=== PATIENT | male | born 1955 | race Two or more races ===

== ENCOUNTER 2022-05-01 05:14 | Emergency (ER) | payer OTHER ==
[~2022-05-01] VITALS: Ht 172.7 cm; Wt 64.9 kg
[2022-05-01] MEDS ORDERED: FLONASE16 GM NS (05:36)
== END 2022-05-01 10:17 | disposition home or self-care (01) ==
LOC: ER 05:14
DX: B34.8 Other viral infections of unspecified site (principal)

== ENCOUNTER 2025-02-01 10:21 | Emergency (ER) | payer OTHER ==
[~2025-02-01] VITALS: Ht 172.7 cm; Wt 69.9 kg
[~2025-02-01 10:21] MED LIST: FLONASE16 GM NS
[2025-02-01] MEDS ORDERED: ONDANSETRON HCL 2 MG/ML VIAL IV ONE (12:00)
[2025-02-01] MEDS ORDERED: FAMOTIDINE/PF 20 MG/2 ML VIAL IV PUSH ONE (12:00)
[2025-02-01] MEDS ORDERED: FAMOTIDINE/PF 20 MG/2 ML VIAL ONE (12:04)
[2025-02-01] MEDS ORDERED: ONDANSETRON HCL 2 MG/ML VIAL ONE (12:04)
[2025-02-01 12:20] LABS: BASO % 0.3 % (0.1-1.2); EOS # 0.09 (0.04-0.54); EOS % 1.0 % (0.7-7.0); LYMPH # 0.77 (1.18-3.74); LYMPH % 8.5 % (19.3-53.1); MEAN PLATELET VOLUME 9.20 fl (9.4-12.4); MONO # 0.64 (0.24-0.82); MONO % 7.1 % (4.7-12.5); NEUT # 7.43 (1.56-6.13); NEUT % 81.9 % (34.0-71.1); RED CELL DISTRIBUTION WIDTH 12.6 % (11.6-14.4)
[2025-02-01 13:21] LABS: COVID-19 AG NEGATIVE (NEGATIVE)
== END 2025-02-01 14:16 | disposition home or self-care (01) ==
LOC: ER 10:58
PROVIDERS: General Practice
DX: B34.9 Viral infection, unspecified (principal); R05.8 Other specified cough; J00 Acute nasopharyngitis [common cold]; Z20.822 Contact with and (suspected) exposure to COVID-19
CPT/HCPCS: 36415; 96365; 99282; J2405; J3490

== ENCOUNTER 2025-03-17 08:39 | Emergency (ER) | payer OTHER ==
[~2025-03-17] VITALS: Ht 172.7 cm; Wt 71.2 kg
[2025-03-17 08:55] VITALS: BP 153/88; O2SAT 95
[2025-03-17] MEDS ORDERED: DEXAMETHASONE SODIUM PHOSPHATE 4 MG/ML VIAL IM STA (09:18)
[2025-03-17] MEDS ORDERED: KETOROLAC TROMETHAMINE 30 MG VIAL IM STA (09:19)
[2025-03-17] MEDS ORDERED: ORPHENADRINE CITRATE 30 MG/ML AMPUL IM STA (09:19)
[2025-03-17] MEDS ORDERED: DEXAMETHASONE SODIUM PHOSPHATE 4 MG/ML VIAL ONE (09:30)
[2025-03-17] MEDS ORDERED: ORPHENADRINE CITRATE 30 MG/ML AMPUL ONE (09:30)
[2025-03-17] MEDS ORDERED: KETOROLAC TROMETHAMINE 30 MG VIAL ONE (09:30)
[2025-03-17] MEDS ORDERED: NORFLEX100MG PO (11:51)
[2025-03-17] MEDS ORDERED: NAPROXEN500 MG PO (11:51)
== END 2025-03-17 13:27 | disposition home or self-care (01) ==
LOC: ER 08:39
DX: M54.50 Low back pain, unspecified (principal)